=== PATIENT | female | born 1970 | race Hispanic/Latino ===

== ENCOUNTER 2019-07-02 10:15 | Emergency (ER) | payer BC, OTHER ==
[~2019-07-02 10:15] MED LIST: IRON PO; MOTRIN PO; RANI-662 PO; TRIA1CAP2 PO; VITAMIN D PO
== END 2019-07-02 11:11 | disposition home or self-care (01) ==
LOC: EDH 10:15
DX: S06.0X0A Concussion without loss of consciousness, initial encounter (principal); S29.011A Strain of muscle and tendon of front wall of thorax, initial encounter; S80.02XA Contusion of left knee, initial encounter; S80.01XA Contusion of right knee, initial encounter; S50.02XA Contusion of left elbow, initial encounter; S50.01XA Contusion of right elbow, initial encounter; Z98.51 Tubal ligation status; W18.39XA Other fall on same level, initial encounter; Y93.01 Activity, walking, marching and hiking; Y92.89 Other specified places as the place of occurrence of the external cause; Y99.8 Other external cause status
CPT/HCPCS: 99282